=== PATIENT | male | born 1950 | race African-American/Black ===

== ENCOUNTER 2017-10-03 06:58 | Day surgery (SDC) | payer OTHER ==
[2017-09-28 16:48] VITALS: BMI 31.6
[2017-10-03] MEDS ORDERED: oxyCODONE HCL 10 MG SUSTAINED ACTING TABLET PO STA (07:19)
--- NOTE | 2017-10-03 07:41 | HP ---
History & Physical Update - History History: No Change - Physical Physical: No Change - Assessment Assessment: No Change - Plan Plan: No Change (Initial H&P is in pateint's paper chart. No new complaints or medications. Scheduled today for ACDF C4/5, C5/6.)
[2017-10-03] MEDS ORDERED: LIDOCAINE 1%/EPI 1:100000 (20 ML MULTI DOSE VIAL) ONE (10:25)
[2017-10-03] MEDS ORDERED: THROMBIN (BOVINE) 5,000 UNIT VIAL TP ONE ×2 (10:25→13:09)
[2017-10-03] MEDS ORDERED: MIDAZOLAM HCL 2 MG/2 ML SINGLE DOSE VIAL ONE (10:28)
[2017-10-03] MEDS ORDERED: DEXAMETHASONE SOD PHOSPHATE/PF 10 MG/ML SDV ONE (10:28)
[2017-10-03] MEDS ORDERED: BUPIVACAINE HCL/PF (5 MG/ML) 30 ML VIAL IJ ONE (10:28)
[2017-10-03] MEDS ORDERED: LIDOCAINE HCL 2% 100 MG/5 ML DISP.SYRIN ONE (11:19)
[2017-10-03] MEDS ORDERED: ceFAZolin SODIUM 1 GM VIAL ONE (11:28)
[2017-10-03] MEDS ORDERED: LIDOCAINE 1%/EPI 1:100000 (50 ML MULTI DOSE VIAL) INF ONE (11:36)
[2017-10-03] MEDS ORDERED: HYDROmorphone HCL/PF 1 MG/ML VIAL (FOR PYXIS CHARGING ONLY) ONE (11:38)
[2017-10-03] MEDS ORDERED: PROPOFOL 20 ML ONE ×5 (12:02→12:57)
[2017-10-03] MEDS ORDERED: DEXAMETHASONE SOD PHOSPHATE 4 MG/1 ML VIAL ONE (12:05)
[2017-10-03] MEDS ORDERED: ONDANSETRON 4 MG/2 ML VIAL ONE (12:05)
[2017-10-03] MEDS ORDERED: GELATIN SPONGE,ABSORBABLE 1 GM PACKET TP ONE (13:10)
[2017-10-03] MEDS ORDERED: GUM MASTIC/STORAX/MSAL/ALCOHOL 1 DRP DROPSBTL MC ONE (13:20)
[2017-10-03] MEDS ORDERED: ALBUTEROL SO4 18 GM HFA INHALER IH ONE (13:36)
--- NOTE | 2017-10-03 13:39 | OP ---
Operative Note - Note: Operative Date: 10/03/17 Pre-Operative Diagnosis: Cervical stenosis with radiculopathy Operation: ACDF C4/5, C5/6, allograft implant, neuromonitoring Post-Operative Diagnosis: Same as Pre-op Surgeon: Inocencio Galan Air Pollution Engineer: Kevan Hassan Anesthesiologist/MARKETING DEVELOPMENT MANAGER: Monica Villa Anesthesia: General Specimens Removed: C4/5, C5/6 discs Estimated Blood Loss (mls): 20 Fluid Volume Replaced (mls): 800 Operative Report Dictated: Yes
[2017-10-03] MEDS ORDERED: oxyCODONE HCL 5 MG TABLET PO PRN (13:40)
[2017-10-03] MEDS ORDERED: ONDANSETRON 4 MG/2 ML VIAL IVPUSH PRN (13:40)
--- NOTE | 2017-10-03 13:40 | SURG ---
Surgery Jewelry Finisher Note Jewelry Finisher: Kevan Hassan PA-C Date of Service: 10/03/17 Diagnosis: C4/5, C5/6 stenosis with radiculopathy Procedure: ACDF C4/5, C5/6, allograft implant, neuromonitoring I was present for the entirety of the operative procedure. For further detail, please refer to operative report. Visit type - Case Type Case Type: Scheduled - New patient This patient is new to me today: Yes Date on this admission: 10/03/17
[2017-10-03] MEDS ORDERED: diazePAM 5 MG TABLET PO PRN (13:42)
[2017-10-03] MEDS ORDERED: LACTATED RINGERS SOLUTION 1,000 ML IV SCH (13:45)
[2017-10-03] MEDS: oxyCODONE HCL 5 MG TABLET PO PRN ×2 (15:59→22:01)
[2017-10-03] MEDS: DEXAMETHASONE 4 MG TABLET (FP) PO SCH ×2 (20:01→22:46)
--- NOTE | 2017-10-03 21:11 | OP ---
DATE OF OPERATION: 10/03/2017 PREOPERATIVE DIAGNOSIS: Cervical stenosis, C4-5, C5-6. POSTOPERATIVE DIAGNOSIS: Cervical stenosis, C4-5, C5-6. PROCEDURE PERFORMED: 1. Anterior cervical diskectomy and fusion, C4-5. 2. Anterior cervical diskectomy and fusion, C5-6. 3. Placement of instrumentation, C4 to C6. 4. Placement of prosthetic cages, C4-5, C5-6. SURGEON: Inocencio Galan MD ROUNDSMAN: TORY Richter ESTIMATED BLOOD LOSS: 50 mL INTRAVENOUS FLUIDS: Per anesthesia note. COMPLICATIONS: None. DISPOSITION: Patient brought to the PACU in stable condition. INDICATIONS FOR SURGERY: The patient is a 67-year-old gentleman who has been suffering from pain from his neck down his arm. X-rays and MRI were completed which noted that he had cervical stenosis at C4-5 and C5-6. He had gone through an exhaustive course of treatment for this for which included medications, physical therapy, as well as injections. Unfortunately, his pain continued to persist despite all this. At this point, risks, benefits, and alternatives were discussed, and the patient consented to surgery. DESCRIPTION OF PROCEDURE: The patient was brought to the operating room by the anesthesia staff. After appropriate patient identification was performed, general anesthesia was administered. Appropriate anesthetic lines were placed. SCDs were placed on the patient. Patient was placed supine on the OR bed with his arms tucked in at the side. A shoulder roll was placed underneath his shoulder to extend his neck to the point that he could tolerate it in preoperative holding area. A needle was taped onto his neck to himanshu off the C4-5 level. An x-ray was taken to confirm this was correct. Needle was removed, and 10 mL of lidocaine with epinephrine were injected into his neck at this time. His neck was prepped and draped in a sterile manner. At this point, timeout was completed, and an incision was made on the left side of his neck. Dissection was carried down to the platysma. The platysma was cut in line with the skin incision. Next, an interval between the sternocleidomastoid and strap muscles was developed. An interval between the carotid sheath and tracheoesophagus was developed. Peanuts were used to elevate it off the prevertebral fascia. A needle was placed into the C4-5 disk. An x-ray was taken to confirm this was correct. Needle was removed, and the longus coli muscles were elevated off. Retractor blades were placed in. A Pecos pin was placed into the body of C4 and C6. A knife was used to incise the disk, and distraction was then applied. The microscope was brought in. Using a series of pituitaries, Kerrisons, and curettes, a diskectomy was completed. The endplates were decorticated at this time. Cages filled with bone graft were placed into C4-5 and C5-6. A screw was placed into the body of C4, C5, and C6. Pecos pins were removed. AP and lateral x-rays confirmed the instrumentation to be in good position. Final tightening was performed. The platysma was closed with 2-0 Vicryl suture. The skin was closed with 3-0 Monocryl suture. Dermabond was applied. Steri-Strips were applied. A sterile dressing was applied. Patient was placed supine on the bed, extubated in the OR, and brought to the PACU in stable condition. Odilia [id number]
[2017-10-03] MEDS ORDERED: LISINOPRIL 10 MG TABLET (FP) PO SCH (22:00)
[2017-10-03] MEDS ORDERED: ATORVASTATIN CA 20 MG TABLET (FP) PO SCH (22:00)
[2017-10-03] MEDS ORDERED: DEXAMETHASONE 4 MG TABLET (FP) PO SCH (22:48)
[2017-10-03] MEDS: CEFAZOLIN 1 GM/D5W 1 GM/50 ML BAG IVPB SCH (23:04)
[2017-10-04] MEDS: oxyCODONE HCL 5 MG TABLET PO PRN ×2 (03:20→08:37)
[2017-10-04] MEDS: CEFAZOLIN 1 GM/D5W 1 GM/50 ML BAG IVPB SCH (06:29)
--- NOTE | 2017-10-04 07:41 | DS ---
Physical Exam: SUBJECTIVE: POD #1. Patient seen and examined. Doing well. C/o mild incisional tenderness. Adequate pain control via prn meds. He states that his neck pain with radiating pain to RUE have 100% resolution. He has been OOB and ambulating unassisted. Tolerating PO diet. Wearing his soft cervical collar as directed. Using his incentive spirometer. Denies n/v/f/c, CP, SOB, DA SILVA, paresthesias. OBJECTIVE: Vital Signs Temperature 98.3 F 10/04/18 06:00 Pulse Rate 73 10/04/18 06:00 Respiratory Rate 18 10/04/17 06:00 Blood Pressure 137/77 10/04/17 06:00 O2 Sat by Pulse Oximetry (%) 97 10/04/18 06:46 PHYSICAL EXAM GENERAL: The patient is awake, alert, and fully oriented, in no acute distress. HEAD: Normal with no signs of trauma. EYES: PERRL, extraocular movements intact, sclera anicteric, conjunctiva clear. NECK: Trachea midline, full range of motion, supple. LUNGS: Breath sounds equal, clear to auscultation bilaterally, no wheezes, no crackles, no accessory muscle use. HEART: Regular rate and rhythm, S1, S2 without murmur, rub or gallop. EXTREMITIES: 2+ pulses, warm, well-perfused, no edema. NEUROLOGICAL: Cranial nerves II through XII grossly intact. Normal speech, gait not observed. PSYCH: Normal mood, normal affect. SKIN: Neck incision c/d/i. No hematoma LABS HOSPITAL COURSE: Date of Admission:18 Date of Discharge: 18 The patient was admitted to the Med-Surg Unit after an elective repair of their C4/5, C5/6 cervical stenosis/herniated discs. Now, s/p C4/5, C5/6 ACDF. The day of surgery, the patient ambulated the hallways without assistance. Narcotic and non-narcotic pain management control was achieved with an oral and IV approach. POD #1, a cervical xray was obtained and confirmed hardware placement at C4/5, C5/6, no fractures or dislocations. Hui-operative IV ABX were administered. DVT prophylaxis was achieved with SCDs and early ambulation. The patient ambulated with Physical Therapy and no services were recommended upon discharge. Narcotic scripts and or muscle relaxants were checked with MIS FABRICATION INSPECTOR prior to escribe. The discharge instructions and an oral pain management plan were reviewed with the patient. All questions answered. Above plan discussed with Dr. Galan and agreed. Minutes to complete discharge: 20 <Kevan Hassan P - Last Filed: 10/04/17 07:36> Physical Exam: SUBJECTIVE: Patient seen and examined OBJECTIVE: Vital Signs Temperature 98.5 F 10/04/17 10:00 Pulse Rate 66 10/04/17 10:00 Respiratory Rate 18 10/04/17 10:00 Blood Pressure 129/70 10/04/17 10:00 O2 Sat by Pulse Oximetry (%) 97 10/04/17 06:46 PHYSICAL EXAM GENERAL: The patient is awake, alert, and fully oriented, in no acute distress. HEAD: Normal with no signs of trauma. EYES: PERRL, extraocular movements intact, sclera anicteric, conjunctiva clear. ENT: Ears normal, nares patent, oropharynx clear without exudates, moist mucous membranes. NECK: Trachea midline, full range of motion, supple. LUNGS: Breath sounds equal, clear to auscultation bilaterally, no wheezes, no crackles, no accessory muscle use. HEART: Regular rate and rhythm, S1, S2 without murmur, rub or gallop. ABDOMEN: Soft, nontender, nondistended, normoactive bowel sounds, no guarding, no rebound, no hepatosplenomegaly, no masses. EXTREMITIES: 2+ pulses, warm, well-perfused, no edema. NEUROLOGICAL: Cranial nerves II through XII grossly intact. Normal speech, gait not observed. PSYCH: Normal mood, normal affect. SKIN: Warm, dry, normal turgor, no rashes or lesions noted. LABS HOSPITAL COURSE: Date of Admission:10/03/17 Date of Discharge: 10/06/17 The patient was admitted to the Med-Surg Unit after an elective repair of their (problem). Now, s/p ( procedure ). The day of surgery, the patient ambulated the hallways with assistance. Narcotic and non-narcotic pain management control was achieved with an oral and IV approach. POD #1, the surgical drain was removed fully intact and without incident. An xray was obtained and confirmed hardware placement at (level of ), no fractures or dislocations. Hui-operative IV ABX were administered. DVT prophylaxis was achieved with SCDs and early ambulation. The patient ambulated with Physical Therapy and no services were recommended upon discharge. Narcotic scripts and or muscle relaxants were checked with MIS FABRICATION INSPECTOR prior to escibe. The discharge instructions and an oral pain management plan were reviewed with the patient. All questions answered. Above plan discussed with Dr. Galan and agreed. Patient seen and examined Agree with above D/C Planning <Inocencio Galan - Last Filed: 10/06/17 11:14> Visit type - Case Type Case Type: Scheduled <Kevan Hassan - Last Filed: 10/04/17 07:36>
[2017-10-04] MEDS ORDERED: PANTOPRAZOLE 40 MG TABLET (FP) PO SCH (10:00)
[2017-10-04 10:17] VITALS: BP 129/70; PULSE 66; TEMP 98.5
--- NOTE | 2017-10-06 18:09 | PATH ---
Surgical Pathology Report Patient Name: ULICES LE [facility]. Rec. #: [id number] /Age/Gender: 1950 (Age: 67) / M Account: [id number] Location: [facility] Taken: 10/03/2017 Received: 10/04/2017 Reported: 10/06/2017 Physicians: Inocencio Galan M.D. Specimen(s) Received C4-C6 DISC Clinical History Cervical stenosis Final Diagnosis C4-C6 DISC, ANTERIOR CERVICAL DISCECTOMY FUSION: INTERVERTEBRAL DISC TISSUE WITH FEW NODULAR CALCIFIC AGGREGATES CONSISTENT WITH CHONDROCALCINOSIS. Electronically Signed Candy Castano M.D. Gross Description Received in formalin, labeled "C4-C6 disc" are multiple white-mcfarland fibrocartilaginous tissue measuring 3 x 2 x 0.5 cm in aggregate. A artist representative portion is submitted in one cassette. SHON/10/05/2017 lara/10/05/2017
== END 2017-10-04 10:20 | disposition home or self-care (01) ==
LOC: FASU 06:58 → FM/S 15:00 → FASU 10-04 10:20
PROVIDERS: ATTEND Orthopaedic Surgery Orthopaedic Surgery of the Spine
PROC: 0RG10A0 Fusion of Cervical Vertebral Joint with Interbody Fusion Device, Anterior Approach, Anterior Column, Open Approach (ICD-10-PCS; 2017-10-03)
PROC: 0RG10K0 Fusion of Cervical Vertebral Joint with Nonautologous Tissue Substitute, Anterior Approach, Anterior Column, Open Approach (ICD-10-PCS; 2017-10-03)
PROC: 0R5 Upper Joints, Destruction (ICD-10-PCS; principal; 2017-10-03 11:11)
DX: M48.02 Spinal stenosis, cervical region (principal)
CPT/HCPCS: 22551; 22552; 22845; 22853; C1889; 72050-TC-FY; 88304-TC; 94760; 97116-GP; 97161-GP